=== PATIENT | female | born 1960 | race Caucasian/White ===

== ENCOUNTER 2016-12-19 00:07 | Emergency (ER) | payer OTHER ==
[2016-12-19] VITALS (7 sets, daily range): BP systolic 103–125; BP diastolic 54–83; PULSE 97–114; RESP 18–20; TEMP 99; O2SAT 97–100
[~2016-12-19] VITALS: Ht 162.6 cm; Wt 80.0 kg
[~2016-12-19 00:07] MED LIST: ADDE30XR PO; ARMO90TA PO; CHOL1TAB16 PO; EXEN1INJ SQ; IBUP800 PO; LEVA750T PO; OMEP20TA PO; THYR15 PO; TRAM50 PO
[2016-12-19] MEDS ORDERED: OMEP20TA PO (01:14)
[2016-12-19] MEDS ORDERED: ADDE30TA PO (01:14)
[2016-12-19] MEDS ORDERED: IBUP800T23 PO (01:14)
[2016-12-19] MEDS ORDERED: CHOL1TAB16 PO (01:14)
[2016-12-19] MEDS ORDERED: ARMO90TA PO (01:14)
[2016-12-19] MEDS ORDERED: SODIUM CHLOR 0.9% 1000 ML INJ 1,000 ML IV ONE ×3 (01:24→04:30)
[2016-12-19] MEDS ORDERED: SODIUM CHLORIDE 0.9% FLUSH 10 ML FLUSH IVF PRN (01:30)
[2016-12-19] MEDS ORDERED: ONDANSETRON HCL 4 MG/2 ML VIAL IVP ONE (01:30)
--- NOTE | 2016-12-19 01:31 | PD ---
HPI Chief Complaint: GI Complaint Time Seen by Provider: 01:24 Travel History International Travel<30 days: No Contact w/Intl Traveler<30days: No Traveled to known affect area: No History of Present Illness HPI 56-year-old female presents to the emergency department by private transportation for complaint of nausea vomiting and diarrhea. Patient states noted fatigue around 4:30 this afternoon and then beginning around 6:30 PM having diarrhea and subsequently developing nausea and vomiting. Patient states she has vomited at least 8 times and had an equal amount of more episodes of diarrhea. Patient has noted streaks of blood in her emesis. Patient denies any blood or melanotic diarrhea. Patient denies any abdominal pain. Patient has had only intermittent cramping just before vomiting or having diarrheal stool. Patient has had no fever but has felt chilled. Patient states that she ate salad for lunch that seemed to be normal to her otherwise no report of dietary indiscretion, well water ingestion, or foreign travel. No other family members are similar symptoms. Patient is unable to identify exacerbating or alleviating factors. Patient reports was on antibiotic and October for bronchitis but has not been on antibiotic for over a month. Diarrhea not bloody or with mucous reports watery and goes straight through. PFSH Past Medical History Narrative Medical Lupus, arthritis, diabetes, asthma, anxiety, depression, CAD, myocardial infarction, cardiac catheterization, hypothyroidism, pneumonia, hysterectomy, appendectomy, cholecystectomy, breast surgery w/cellulitis; occasional alcohol use; nursing notes reviewed Hx Anticoagulant Therapy: Yes (ASA 81 MG DAILY) Arthritis: Yes Asthma: Yes Autoimmune Disease: Yes (LUPUS) Blood Disorders: No Depression: Yes Cancer: No Cardiac Catheterization: Yes (2006,2008) Cardiovascular Problems: Yes ([place]) High Cholesterol: No Chest Pain: Yes Diabetes: Yes (TYPE 2) Diminished Hearing: No GERD: Yes Glaucoma: No Genitourinary: No Headaches: Yes Hepatitis: No Hiatal Hernia: Yes Hypertension: No Musculoskeletal: No Neurologic: Yes Psychiatric: Yes Reproductive: No Respiratory: Yes (HX OF PNEUMONIA 2002) Immunizations Current: Yes Migraines: Yes Myocardial Infarction: Yes (JUL 2006, SEP 2006) Thyroid Disease: Yes Tetanus Vaccination: < 5 Years Influenza Vaccination: Yes PNEUMOCCOCAL Vaccine (Year): 2007 ?: Not Ovarian Cysts: Yes Tubal Ligation: Yes (2001) Past Surgical History Abdominal Surgery: Yes Appendectomy: Yes (2003) Cardiac Surgery: Yes Section: Yes (2001) Cholecystectomy: Yes Ear Surgery: No Endocrine Surgery: No Eye Surgery: No Genitourinary Surgery: No Gynecologic Surgery: Yes Hysterectomy: Yes (2006) Oral Surgery: No Pacemaker: No Thoracic Surgery: No Other Surgery: Yes Social History Alcohol Use: Yes (OCCASIONAL) Tobacco Use: No Substance Use: No Allergies-Medications (Allergen,Severity, Reaction): Coded Allergies: [employer] (Verified Allergy, Severe, hives, 12/19/16) Morphine (Verified Allergy, Severe, hives, 12/19/16) Penicillin (Verified Allergy, Severe, RASH, 12/19/16) Sulfa (Verified Allergy, Severe, RASH, 12/19/16) Uncoded Allergies: [facility] (Adverse Reaction, Severe, Not Dr Hill's patient. , 05/07/11) Reported Meds & Prescriptions Reported Meds & Active Scripts Active Reported [place] Thyroid (Thyroid) 90 Mg Tab 90 Mg PO DAILY Omeprazole 20 Mg Tab 20 Mg PO DAILY Ibuprofen 800 Mg Tab 800 Mg PO Q8H PRN Vitamin D3 (Cholecalciferol) 50,000 Unit Tab 50,000 Units PO Q7D Adderall (Amphetamine-Dextroamphetamine) 30 Mg Tab 30 Mg PO BID Avoid late evening doses. Space doses at least 4 to 6 hours if more than once/day dosing. Review of Systems Except as stated in HPI: all other systems reviewed are Neg General / Constitutional: Positive: Chills, No: Fever HENT: Positive: Headaches, No: Congestion Cardiovascular: No: Chest Pain or Discomfort, Palpitations, Syncope Respiratory: No: Shortness of Breath Gastrointestinal: Positive: Nausea, Vomiting, Diarrhea, No: Abdominal Pain ( cramping) Genitourinary: Positive: Decreased Urinary Output, No: Dysuria Musculoskeletal: No: Myalgias, Arthralgias Skin: No Rash Neurologic: Positive: Weakness Psychiatric: No: Anxiety, Depression Hematologic/Lymphatic: No: Easy Bruising Physical Exam Narrative GENERAL: Well-developed well-nourished female in no acute distress no respiratory distress SKIN: Warm and dry. HEAD: Normocephalic. EYES: No scleral icterus. No injection or drainage. NECK: Supple, trachea midline. No JVD or lymphadenopathy. CARDIOVASCULAR: Increased Regular rate and rhythm without murmurs, gallops, or rubs. RESPIRATORY: Breath sounds equal bilaterally. No accessory muscle use. GASTROINTESTINAL: Abdomen soft, non-tender, nondistended. No guarding or rebound. MUSCULOSKELETAL: No cyanosis, or edema. BACK: Nontender without obvious deformity. No CVA tenderness. Data Data Last Documented VS Vital Signs Date Time Temp Pulse Resp B/P Pulse Ox O2 Delivery O2 Flow Rate FiO2 12/19/16 03:58 114 18 120/82 98 Room Air 12/19/16 00:46 99.0 Orders Complete Blood Count With Diff (12/19/16 01:24) Comprehensive Metabolic Panel (12/19/16 01:24) Urinalysis - C+S If Indicated (12/19/16 01:24) Lipase (12/19/16 01:24) Iv Access Insert/Monitor (12/19/16 01:24) Ecg Monitoring (12/19/16 01:24) Oximetry (12/19/16 01:24) Ondansetron Inj (Zofran Inj) (12/19/16 01:30) Sodium Chlor 0.9% 1000 Ml Inj (Ns 1000 M (12/19/16 01:24) Sodium Chloride 0.9% Flush (Ns Flush) (12/19/16 01:30) Enteric Path (Stool) (12/19/16 01:24) Ondansetron Odt (Zofran Odt) (12/19/16 02:30) Sucralfate Liq (Carafate Liq) (12/19/16 03:30) Ketorolac Inj (Toradol Inj) (12/19/16 03:30) Electrocardiogram (12/19/16 ) Chest, Single Ap (12/19/16 ) Sodium Chlor 0.9% 1000 Ml Inj (Ns 1000 M (12/19/16 03:45) Troponin I (12/19/16 01:50) Sodium Chlor 0.9% 1000 Ml Inj (Ns 1000 M (12/19/16 04:30) Labs Laboratory Tests Test 12/19/16 12/19/16 01:35 01:50 Urine Color YELLOW Urine Turbidity MOD Urine pH 8.5 Urine Specific [place] 1.022 Urine Protein 30 mg/dL Urine Glucose (UA) NEG mg/dL Urine Ketones NEG mg/dL Urine Occult Blood NEG Urine Nitrite NEG Urine Bilirubin NEG Urine Leukocyte Esterase NEG Urine RBC 0-3 /hpf Urine WBC 0-2 /hpf Urine Squamous Epithelial 0-5 /hpf Cells Urine Amorphous Sediment LARGE Urine Mucus FEW /lpf Microscopic Urinalysis Comment CULT NOT INDICATED White Blood Count 4.9 TH/MM3 Red Blood Count 5.09 MIL/MM3 Hemoglobin 14.1 GM/DL Hematocrit 42.5 % Mean Corpuscular Volume 83.5 FL Mean Corpuscular Hemoglobin 27.7 PG Mean Corpuscular Hemoglobin 33.2 % Concent Red Cell Distribution Width 13.9 % Platelet Count 240 TH/MM3 Mean Platelet Volume 8.4 FL Neutrophils (%) (Auto) 86.8 % Lymphocytes (%) (Auto) 8.1 % Monocytes (%) (Auto) 4.0 % Eosinophils (%) (Auto) 0.3 % Basophils (%) (Auto) 0.8 % Neutrophils # (Auto) 4.3 TH/MM3 Lymphocytes # (Auto) 0.4 TH/MM3 Monocytes # (Auto) 0.2 TH/MM3 Eosinophils # (Auto) 0.0 TH/MM3 Basophils # (Auto) 0.0 TH/MM3 CBC Comment DIFF FINAL Differential Comment Sodium Level 139 MEQ/L Potassium Level 3.7 MEQ/L Chloride Level 104 MEQ/L Carbon Dioxide Level 24.9 MEQ/L Anion Gap 10 MEQ/L Blood Urea Nitrogen 11 MG/DL Creatinine 0.87 MG/DL Estimat Glomerular Filtration 68 ML/MIN Rate Random Glucose 120 MG/DL Calcium Level 8.8 MG/DL Total Bilirubin 0.6 MG/DL Aspartate Amino Transf 25 U/L (AST/SGOT) Alanine Aminotransferase 28 U/L (ALT/SGPT) Alkaline Phosphatase 104 U/L Troponin I LESS THAN 0.02 NG/ML Total Protein 8.5 GM/DL Albumin 3.9 GM/DL Lipase 209 U/L MDM Medical Decision Making Medical Screen Exam Complete: Yes Emergency Medical Condition: Yes Medical Record Reviewed: Yes Interpretation(s) CBC & BMP Diagram 12/19/16 01:50 Vital Signs Date Time Temp Pulse Resp B/P Pulse Ox O2 Delivery O2 Flow Rate FiO2 12/19/16 03:02 18 12/19/16 03:02 110 18 103/62 97 Room Air 12/19/16 02:07 18 98 Room Air 12/19/16 01:30 97 18 125/79 100 Room Air 12/19/16 00:49 18 12/19/16 00:46 99.0 105 18 110/83 97 12/19/16 00:25 99.0 105 20 110/83 97 ua: SG 1.022 EKG: Sinus tachycardia rate [address] elevation or injury pattern change noted CXR: NAD trop: less than 0.02, not elevated Differential Diagnosis Gastroenteritis, foodborne illness, dehydration, gastritis, peptic ulcer disease , electrolyte disturbance, acs, pud, pancreatitis Narrative Course IV access obtained; specimens collected and sent for resulting; 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 Patient reassessed at 3:35 AM remains tachycardic and complaining of nausea requesting medication for reflux. Patient agreeable to repeat IV access and IV site obtained patient given liter of normal saline; also complains of headache Toradol 30 mg IV administered. No chest pain no shortness of breath. However in view of history of lupus with ongoing nausea vomiting and now complaining of reflux will obtain EKG as well as at troponin I to lab work. 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 Patient will be given prescription for Zofran and a work excuse and school excuse times one day. Patient is encouraged to follow clear liquid diet for 12-24 hours advance as tolerated. Patient is encouraged to return to the emergency for free concerns or change in condition. Patient is encouraged to increase fluid hydration. Patient is stable for outpatient management and follow-up with primary care provider. Patient's questions have been answered to her satisfaction. Diagnosis Primary Impression: Gastroenteritis Referrals: Primary Care Physician call for appointment Patient Instructions: General Instructions Departure Forms: School Release, Please excuse from school until (free text option): no school x 1 day Tests/Procedures, Work Release Special Instructions: no work x 1 day Additional Instructions: Increase fluid hydration Follow clear liquid diet for next 12-24 hours; advance diet as tolerated to bland/Dug[place] diet; advance to regular diet avoiding fried and fatty foods Take Zofran as prescribed as needed for nausea and/or vomiting Take acetaminophen/Tylenol as needed for fever 100.4F or greater Follow-up with primary care provider call office in a.m. to schedule follow-up appointment Return to the emergency department for any concerns or change in condition Med/Other Pt SpecificInfo: Prescription(s) given Scripts Ondansetron (Zofran)4 Mg Tab4 Mg PO Q6HR PRN (NAUSEA OR VOMITING) #10 TAB Ref 0 Prov:Patricia Medrano MD 12/19/16 Disposition: 01 DISCHARGE HOME Condition: Stable Patricia Medrano MD Dec 19, 2016 01:31
[2016-12-19 02:19] LABS: BLOOD, URINE NEG (NEG); GLUCOSE,URINE NEG (NEG); KETONE, URINE NEG (NEG); NITRITE,URINE NEG (NEG); PH, URINE 8.5 (5.0-8.5)
[2016-12-19 02:25] LABS: MUCUS URINE FEW /lpf (OCC); URINE COLOR YELLOW (YELLW/STRAW)
[2016-12-19 02:26] LABS: RBC, URINE 0-3 /hpf (0-3); SQUAMOUS EPITHELIAL CELL URINE 0-5 /hpf (0-5); WBC, URINE 0-2 /hpf (0-5)
[2016-12-19 02:26] LABS: AUTOMATED NEUTROPHIL # 4.3 TH/MM3 (1.8-7.7); BASOPHIL % 0.8 % (0.0-2.0); EOSINOPHIL % 0.3 % (0.0-4.0); HEMATOCRIT 42.5 % (35.0-46.0); LYMPH % 8.1 % (9.0-44.0); LYMPHOCYTE # 0.4 TH/MM3 (1.0-4.8); MEAN CELL VOLUME 83.5 FL (80.0-100.0); MEAN CORPUSCULAR HEMOGLOBIN 27.7 PG (27.0-34.0); MEAN CORPUSCULAR HGB CONC 33.2 % (32.0-36.0); NEUT % 86.8 % (16.0-70.0); PLATELET COUNT 240 TH/MM3 (150-450); RED BLOOD COUNT 5.09 MIL/MM3 (4.00-5.30); RED CELL DISTRIBUTION WIDTH 13.9 % (11.6-17.2); WHITE BLOOD COUNT 4.9 TH/MM3 (4.0-11.0)
[2016-12-19 02:27] LABS: CHLORIDE 104 MEQ/L (98-107); POTASSIUM 3.7 MEQ/L (3.5-5.1); SODIUM (NA) 139 MEQ/L (136-145)
[2016-12-19 02:27] LABS: COMMENT (UR) CULT NOT INDICATED; CULTURE IF INDICATED CULT NOT INDICATED
[2016-12-19 02:28] LABS: HEMO FLAGS DIFF FINAL
[2016-12-19 02:30] LABS: ANION GAP 10 MEQ/L (5-15); BICARBONATE 24.9 MEQ/L (21.0-32.0)
[2016-12-19] MEDS ORDERED: ONDANSETRON ODT 4 MG TAB PO ONE (02:30)
[2016-12-19 02:31] LABS: BLOOD UREA NITROGEN 11 MG/DL (7-18)
[2016-12-19 02:33] LABS: ALT (GPT) 28 U/L (10-53); AST (GOT) 25 U/L (15-37)
[2016-12-19 02:34] LABS: GLOMERULAR FILTRATION RATE 68 ML/MIN (>89)
[2016-12-19 02:35] LABS: TOTAL BILIRUBIN ADULT 0.6 MG/DL (0.2-1.0)
[2016-12-19 02:36] LABS: ALKALINE PHOSPHATASE 104 U/L (45-117)
[2016-12-19] MEDS ORDERED: SUCRALFATE 1 GM/10 ML CUP PO ONE (03:30)
[2016-12-19] MEDS ORDERED: KETOROLAC TROMETHAMINE 30 MG/ML (IVP) VIAL IV PUSH ONE (03:30)
--- NOTE | 2016-12-19 04:06 | RADHPO ---
EXAM DATE/TIME: 12/19/2016 03:49 [facility] COMPARISON: CHEST SINGLE AP, May 25, 2016, 19:39. INDICATIONS : Fever. MEDICAL HISTORY : Myocardial infarction. Gastroesophageal reflux disease. Hiatal hernia. Thyroid disease, Pneumonia, As thma, Arthritis, Diabetes. SURGICAL HISTORY : Cholecystectomy. Appendectomy. Coronary artery stent. Hysterectomy. ENCOUNTER: Initial ACUITY: 1 day PAIN SCORE: 4/10 LOCATION: Bilateral chest FINDINGS: A single view of the chest demonstrates the lungs to be symmetrically aerated without evidence of mas s, infiltrate or effusion. The cardiomediastinal contours are unremarkable. Osseous structures are intact. CONCLUSION: No acute disease. No significant change has occurred. Trev Weiss MD on December 19, 2016 at 4:04 Board Certified Radiologist. This report was verified electronically.
[2016-12-19] MEDS ORDERED: ZOFR4TAB3 SL (04:22)
[2016-12-19] MEDS ORDERED: ZOFR4TAB PO (04:26)
--- NOTE | 2016-12-20 17:50 | EKG ---
Date Performed: 12/19/2016 Time Performed: 04:04:22 PTAGE: 56 years EKG: Sinus tachycardia. Anterolateral ST-T changes are nonspecific Borderline ECG Compared to pr ior study of 12/28/2013, nonspecific ST segment changes are now present. PREVIOUS TRACING : 12/28/2013 20.16 DOCTOR: Harman Godoy Interpretating Date/Time 12/20/2016 17:49:28
== END 2016-12-19 05:22 | disposition home or self-care (01) ==
LOC: PHED 00:07
DX: K52.9 Noninfective gastroenteritis and colitis, unspecified (principal); R53.83 Other fatigue; R00.0 Tachycardia, unspecified; R94.31 Abnormal electrocardiogram [ECG] [EKG]; E11.9 Type 2 diabetes mellitus without complications; E03.9 Hypothyroidism, unspecified; Z79.82 Long term (current) use of aspirin; Z86.2 Personal history of diseases of the blood and blood-forming organs and certain disorders involving the immune mechanism; Z87.39 Personal history of other diseases of the musculoskeletal system and connective tissue; Z87.09 Personal history of other diseases of the respiratory system; Z86.59 Personal history of other mental and behavioral disorders; Z86.79 Personal history of other diseases of the circulatory system; Z87.19 Personal history of other diseases of the digestive system; Z86.69 Personal history of other diseases of the nervous system and sense organs
CPT/HCPCS: 71010; 80053; 81001; 83690; 84484; 85025; 93005; 96361; 96374; 99284; J1885; J2405; J7030

== ENCOUNTER 2017-07-21 20:33 | Emergency (ER) | payer OTHER ==
[~2017-07-21] VITALS: Ht 162.6 cm; Wt 84.0 kg
[~2017-07-21 20:33] MED LIST changes: +ADDE30TA PO; -ADDE30XR PO; -EXEN1INJ SQ; +IBUP1TAB7 PO; -IBUP800 PO; -LEVA750T PO; -OMEP20TA PO; +OMEP20TA93 PO; -THYR15 PO; -TRAM50 PO; +ZOFR4TAB PO
[2017-07-21 20:41] VITALS: BP 115/71; PULSE 88; RESP 16; TEMP 98; O2SAT 97
[2017-07-21] MEDS ORDERED: CHOL1CAP34 PO (20:54)
[2017-07-21] MEDS ORDERED: PANT40TA3 PO (20:54)
--- NOTE | 2017-07-21 21:15 | PD ---
HPI Chief Complaint: Injury Time Seen by Provider: 21:02 Travel History International Travel<30 days: No Contact w/Intl Traveler<30days: No Traveled to known affect area: No History of Present Illness HPI ABOUT 1 HR PRIOR TO ARRIVAL FELL ON OUTSTRETCHED RIGHT HAND, NOTED BRUISING TO FLEXOR ASPECT OF WRIST, ALSO FEELS SOME TINGLING TO HER THUMB/INDEX AND MIDDLE FINGER. NO ALLEVIATING FACTORS.....AGGRAVATED BY FLEXING OR EXTENDING WRIST..... PFSH Past Medical History Hx Anticoagulant Therapy: Yes (ASA 81 MG DAILY) Arthritis: Yes Asthma: Yes Autoimmune Disease: Yes (LUPUS) Blood Disorders: No Depression: Yes Cancer: No Cardiac Catheterization: Yes (2006,2008) Cardiovascular Problems: Yes ([place]) High Cholesterol: No Chest Pain: Yes Diabetes: Yes (TYPE 2) Patient Takes Glucophage: No Diminished Hearing: No GERD: Yes Glaucoma: No Genitourinary: No Headaches: Yes Hepatitis: No Hiatal Hernia: Yes Hypertension: No Musculoskeletal: No Neurologic: Yes Psychiatric: Yes Reproductive: No Respiratory: Yes (HX OF PNEUMONIA 2002) Immunizations Current: Yes Migraines: Yes Myocardial Infarction: Yes (JUL 2006, SEP 2006) Thyroid Disease: Yes PNEUMOCCOCAL Vaccine (Year): 2007 Ovarian Cysts: Yes Tubal Ligation: Yes (2001) Past Surgical History Abdominal Surgery: Yes Appendectomy: Yes (2003) Cardiac Surgery: Yes Section: Yes (2001) Cholecystectomy: Yes Ear Surgery: No Endocrine Surgery: No Eye Surgery: No Genitourinary Surgery: No Gynecologic Surgery: Yes Hysterectomy: Yes Oral Surgery: No Pacemaker: No Thoracic Surgery: No Other Surgery: Yes Social History Alcohol Use: Yes (OCCASIONAL) Tobacco Use: No Substance Use: No Allergies-Medications (Allergen,Severity, Reaction): Coded Allergies: Sulfa (Sulfonamide Antibiotics) (Unverified Allergy, Severe, RASH, ) diatrizoate meglumine (Unverified Allergy, Severe, hives, 07/21/17) gadodiamide (Unverified Allergy, Severe, hives, 07/21/17) gadoteridol (Unverified Allergy, Severe, hives, 07/21/17) iodixanol (Unverified Allergy, Severe, hives, 07/21/17) iohexol (Unverified Allergy, Severe, hives, 07/21/17) morphine (Unverified Allergy, Severe, hives, 07/21/17) penicillin G (Unverified Allergy, Severe, RASH, 07/21/17) Uncoded Allergies: [facility] (Adverse Reaction, Severe, Not Dr Hill's patient. , 05/07/11) Reported Meds & Prescriptions Reported Meds & Active Scripts Active Zofran (Ondansetron HCl) 4 Mg Tab 4 Mg PO Q6HR PRN Reported Pantoprazole (Pantoprazole Sodium) 40 Mg Tab 40 Mg PO DAILY Vitamin D3 (Cholecalciferol) 50,000 Unit Cap 50,000 Units PO Q7D [place] Thyroid (Thyroid) 90 Mg Tab 90 Mg PO DAILY Ibuprofen 800 Mg Tab 800 Mg PO Q8H PRN Vitamin D3 (Cholecalciferol) 50,000 Unit Tab 50,000 Units PO Q7D Adderall (Amphetamine-Dextroamphetamine) 30 Mg Tab 30 Mg PO BID Avoid late evening doses. Space doses at least 4 to 6 hours if more than once/day dosing. Review of Systems Except as stated in HPI: all other systems reviewed are Neg Musculoskeletal: Positive: Pain (RT WRIST) Physical Exam Narrative GENERAL: SKIN: Warm and dry. HEAD: Atraumatic. Normocephalic. EYES: Pupils equal and round. No scleral icterus. No injection or drainage. ENT: No nasal bleeding or discharge. Mucous membranes pink and moist. NECK: Trachea midline. No JVD. CARDIOVASCULAR: Regular rate and rhythm. RESPIRATORY: No accessory muscle use. Clear to auscultation. Breath sounds equal bilaterally. GASTROINTESTINAL: Abdomen soft, non-tender, nondistended. MUSCULOSKELETAL: Extremities without clubbing, cyanosis, or edema. No obvious deformities. FLEXOR ASPECT OVER CARPAL TUNNEL REGION HAS ECHYMOSIS C/W CONTUSION NEUROLOGICAL: Awake and alert. No obvious cranial nerve deficits. Motor grossly within normal limits. Five out of 5 muscle strength in the arms and legs. Normal speech. PSYCHIATRIC: Appropriate mood and affect; insight and judgment normal. Data Data Last Documented VS Vital Signs Date Time Temp Pulse Resp B/P (MAP) Pulse Ox O2 Delivery O2 Flow Rate FiO2 07/21/17 20:41 98.0 88 16 115/71 (86) 97 Orders Orders Wrist, Complete ([id number]) (07/21/17 ) Splint Or Brace Apply/Monitor (07/21/17 21:16) MDM Medical Decision Making Medical Screen Exam Complete: Yes Emergency Medical Condition: Yes Medical Record Reviewed: Yes Differential Diagnosis FX V DISLOCATION V SUBLUXATION V CONTUSION Diagnosis Primary Impression: Contusion of wrist, right Qualified Codes: S60.211A - Contusion of right wrist, initial encounter Patient Instructions: Contusion in Adults (ED), General Instructions Scripts Tramadol (Ultram) 50 Mg Tab 50 MG PO Q6H Y for PAIN, #10 TAB 0 Refills Prov: Matti Yadav MD 07/21/17 Disposition: 01 DISCHARGE HOME Condition: Stable Matti Yadav MD Jul 21, 2017 21:15
[2017-07-21] MEDS ORDERED: TRAM50 PO (21:19)
--- NOTE | 2017-07-21 21:41 | RADRPT ---
EXAM DATE/TIME: 07/21/2017 20:58 [facility] COMPARISON: No previous studies available for comparison. INDICATIONS : Right wrist pain. MEDICAL HISTORY : None. SURGICAL HISTORY : None. ENCOUNTER: Initial ACUITY: 1 day PAIN SCORE: 8/10 LOCATION: Right wrist. FINDINGS: Three view examination of the right wrist demonstrates no soft tissue swelling, dislocation, or fract ure. The carpal bones are in normal alignment. The joint spaces are maintained. Bony mineralizatio n is normal. CONCLUSION: Unremarkable examination of the right wrist. Adam Hummel MD on July 21, 2017 at 21:37 Board Certified Radiologist. This report was verified electronically.
== END 2017-07-21 21:20 | disposition home or self-care (01) ==
LOC: PHEFT 20:33
DX: S60.211A Contusion of right wrist, initial encounter (principal); W19.XXXA Unspecified fall, initial encounter
CPT/HCPCS: 73110; 99283; L3908

== ENCOUNTER 2017-09-15 18:17 | Emergency (ER) | payer OTHER ==
[~2017-09-15] VITALS: Ht 162.6 cm; Wt 84.8 kg
[~2017-09-15 18:17] MED LIST changes: +CHOL1CAP34 PO; -OMEP20TA93 PO; +PANT40TA3 PO; +TRAM50 PO
[2017-09-15 18:25] VITALS: BP 137/82; PULSE 89; RESP 16; TEMP 99.5; O2SAT 97
[2017-09-15] MEDS ORDERED: AZIT250T3 PO (18:53)
[2017-09-15] MEDS ORDERED: BENZ100 PO (18:53)
--- NOTE | 2017-09-15 18:54 | PD ---
HPI Chief Complaint: Cold / Flu Symptoms Time Seen by Provider: 18:42 Travel History International Travel<30 days: No Contact w/Intl Traveler<30days: No Traveled to known affect area: No History of Present Illness HPI 57-year-old female with cough 3 weeks. She reports the last several days the cough has become productive with colored sputum. She reports the symptoms originally improved but then returned. Subjective fevers. No chest pain or shortness of breath. Symptom severity is moderate. No aggravating or alleviating factors. PFSH Past Medical History Hx Anticoagulant Therapy: Yes (ASA 81 MG DAILY) Arthritis: Yes Asthma: Yes Autoimmune Disease: Yes (LUPUS) Blood Disorders: No Depression: Yes Cancer: No Cardiac Catheterization: Yes (2006,2008) Cardiovascular Problems: Yes ([place]) High Cholesterol: No Chest Pain: Yes Diabetes: Yes (TYPE 2) Patient Takes Glucophage: No Diminished Hearing: No GERD: Yes Glaucoma: No Genitourinary: No Headaches: Yes Hepatitis: No Hiatal Hernia: Yes Hypertension: No Medical other: No Musculoskeletal: No Neurologic: Yes Psychiatric: Yes Reproductive: No Respiratory: Yes (HX OF PNEUMONIA 2002) Immunizations Current: Yes Migraines: Yes Myocardial Infarction: Yes (JUL 2006, SEP 2006) Thyroid Disease: Yes PNEUMOCCOCAL Vaccine (Year): 2007 ?: Not Ovarian Cysts: Yes Tubal Ligation: Yes (2001) Past Surgical History Abdominal Surgery: Yes Appendectomy: Yes (2003) Cardiac Surgery: Yes Section: Yes (2001) Cholecystectomy: Yes Ear Surgery: No Endocrine Surgery: No Eye Surgery: No Genitourinary Surgery: No Gynecologic Surgery: Yes Hysterectomy: Yes Oral Surgery: No Pacemaker: No Thoracic Surgery: No Other Surgery: Yes Social History Alcohol Use: Yes (OCCASIONAL) Tobacco Use: No Substance Use: No Allergies-Medications (Allergen,Severity, Reaction): Coded Allergies: Sulfa (Sulfonamide Antibiotics) (Unverified Allergy, Severe, RASH, 09/15/17 ) diatrizoate meglumine (Unverified Allergy, Severe, hives, 09/15/17) gadodiamide (Unverified Allergy, Severe, hives, 09/15/17) gadoteridol (Unverified Allergy, Severe, hives, 09/15/17) iodixanol (Unverified Allergy, Severe, hives, 09/15/17) iohexol (Unverified Allergy, Severe, hives, 09/15/17) morphine (Unverified Allergy, Severe, hives, 09/15/17) penicillin G (Unverified Allergy, Severe, RASH, 09/15/17) Reported Meds & Prescriptions Reported Meds & Active Scripts Active Ultram (Tramadol HCl) 50 Mg Tab 50 Mg PO Q6H PRN Zofran (Ondansetron HCl) 4 Mg Tab 4 Mg PO Q6HR PRN Reported Pantoprazole (Pantoprazole Sodium) 40 Mg Tab 40 Mg PO DAILY Vitamin D3 (Cholecalciferol) 50,000 Unit Cap 50,000 Units PO Q7D [place] Thyroid (Thyroid) 90 Mg Tab 90 Mg PO DAILY Ibuprofen 800 Mg Tab 800 Mg PO Q8H PRN Adderall (Amphetamine-Dextroamphetamine) 30 Mg Tab 30 Mg PO BID Avoid late evening doses. Space doses at least 4 to 6 hours if more than once/day dosing. Review of Systems Except as stated in HPI: all other systems reviewed are Neg General / Constitutional: Positive: Fever Eyes: No: Visual changes HENT: No: Headaches Cardiovascular: No: Chest Pain or Discomfort Respiratory: Positive: Cough Gastrointestinal: No: Abdominal Pain Genitourinary: No: Dysuria Physical Exam Narrative GENERAL: Well-nourished, well-developed patient. SKIN: Focused skin assessment warm/dry. HEAD: Normocephalic. EYES: No injection or drainage. NECK: Supple, trachea midline. CARDIOVASCULAR: Regular rate and rhythm without murmurs, gallops, or rubs. RESPIRATORY: Breath sounds equal bilaterally. No accessory muscle use. Rhonchorous cough GASTROINTESTINAL: Abdomen soft, non-tender, nondistended. Data Data Last Documented VS Vital Signs Date Time Temp Pulse Resp B/P (MAP) Pulse Ox O2 Delivery O2 Flow Rate FiO2 09/15/17 18:25 99.5 89 16 137/82 (100) 97 MDM Medical Decision Making Medical Screen Exam Complete: Yes Emergency Medical Condition: Yes Differential Diagnosis Bronchitis, pneumonia, influenza Narrative Course 57-year-old female here with cough 3 weeks. On exam she has a rhonchorous cough. Her vital signs are stable. She is nontoxic appearing. She will be treated with azithromycin given the duration of the cough. Diagnosis Primary Impression: Bronchitis Referrals: Primary Care Physician Additional Instructions: Tylenol or ibuprofen as needed for pain or fever. Follow-up the primary doctor. Scripts Benzonatate (Tessalon Perles) 100 Mg Cap 200 MG PO TID Y for COUGH for 4 Days, CAP 0 Refills Prov: Erendira Blair 09/15/17 Azithromycin (Azithromycin) 250 Mg Tab 250 MG PO DIRECTED for Infection, #6 TAB 0 Refills Take 2 tabs (500 mg) on day 1 then 1 tab daily x 4 days. Prov: Erendira Blair 09/15/17 Disposition: 01 DISCHARGE HOME Condition: Stable Erendira Blair Sep 15, 2017 18:54
== END 2017-09-15 19:05 | disposition home or self-care (01) ==
LOC: PHEFT 18:17
DX: J40 Bronchitis, not specified as acute or chronic (principal); J45.909 Unspecified asthma, uncomplicated; M32.9 Systemic lupus erythematosus, unspecified; E11.9 Type 2 diabetes mellitus without complications; K21.9 Gastro-esophageal reflux disease without esophagitis; I25.2 Old myocardial infarction; Z79.82 Long term (current) use of aspirin; Z88.5 Allergy status to narcotic agent; Z88.2 Allergy status to sulfonamides; Z88.0 Allergy status to penicillin
CPT/HCPCS: 99284

== ENCOUNTER 2017-12-02 00:25 | Emergency (ER) | payer OTHER ==
[~2017-12-02] VITALS: Ht 162.6 cm; Wt 84.5 kg
[~2017-12-02 00:25] MED LIST changes: +AZIT250T3 PO; +BENZ100 PO; -CHOL1TAB16 PO; -TRAM50 PO; -ZOFR4TAB PO
[2017-12-02 00:30] VITALS: BP 131/66; PULSE 81; RESP 18; TEMP 98.8; O2SAT 96
[2017-12-02 02:30] VITALS: BP 123/74; PULSE 68; RESP 16; O2SAT 98
[2017-12-02 02:55] VITALS: TEMP 97.9
[2017-12-02] MEDS ORDERED: IBUPROFEN 800 MG TAB PO ONE (03:00)
--- NOTE | 2017-12-02 03:45 | PD ---
HPI Chief Complaint: ENT Complaint Time Seen by Provider: 02:50 Travel History International Travel<30 days: No Contact w/Intl Traveler<30days: No Traveled to known affect area: No History of Present Illness HPI 57-year-old female with 2 weeks of sore throat presents to the emergency department for persistent sore throat and right throat swelling. Patient has no difficulty managing oral secretions but does not want to eat or drink secondary to pain. Patient denies any vomiting or diarrhea. Patient denies any abdominal pain. Patient does not report fever. Patient denies recent travel protracted bedrest or surgical procedure. PFSH Past Medical History Narrative Medical CAD dyslipidemia pneumonia; nursing notes reviewed Hx Anticoagulant Therapy: Yes (ASA 81 MG DAILY) Arthritis: Yes Asthma: Yes Autoimmune Disease: Yes (LUPUS) Blood Disorders: No Depression: Yes Cancer: No Cardiac Catheterization: Yes (2006,2008) Cardiovascular Problems: Yes ([place]) High Cholesterol: No Chest Pain: Yes Diabetes: No (TYPE 2) Patient Takes Glucophage: No Diminished Hearing: No GERD: Yes Glaucoma: No Genitourinary: No Headaches: Yes Hepatitis: No Hiatal Hernia: Yes Hypertension: No Musculoskeletal: No Neurologic: Yes Psychiatric: Yes Reproductive: No Respiratory: Yes (HX OF PNEUMONIA 2002) Immunizations Current: Yes Migraines: Yes Myocardial Infarction: Yes (JUL 2006, SEP 2006) Thyroid Disease: Yes Tetanus Vaccination: < 5 Years Influenza Vaccination: Yes PNEUMOCCOCAL Vaccine (Year): 2007 ?: Not Ovarian Cysts: Yes Tubal Ligation: Yes (2001) Past Surgical History Abdominal Surgery: Yes Appendectomy: Yes (2003) Cardiac Surgery: Yes Section: Yes (2001) Cholecystectomy: Yes Ear Surgery: No Endocrine Surgery: No Eye Surgery: No Genitourinary Surgery: No Gynecologic Surgery: Yes Hysterectomy: Yes Oral Surgery: No Pacemaker: No Thoracic Surgery: No Other Surgery: Yes (BREAST IMPLANT REMOVAL) Social History Alcohol Use: Yes (OCCASIONAL) Tobacco Use: No Substance Use: No Allergies-Medications (Allergen,Severity, Reaction): Coded Allergies: Sulfa (Sulfonamide Antibiotics) (Verified Allergy, Severe, RASH, 12/02/17) diatrizoate meglumine (Verified Allergy, Severe, hives, 12/02/17) gadodiamide (Verified Allergy, Severe, hives, 12/02/17) gadoteridol (Verified Allergy, Severe, hives, 12/02/17) iodixanol (Verified Allergy, Severe, hives, 12/02/17) iohexol (Verified Allergy, Severe, hives, 12/02/17) morphine (Verified Allergy, Severe, hives, 12/02/17) penicillin G (Verified Allergy, Severe, RASH, 12/02/17) Reported Meds & Prescriptions Reported Meds & Active Scripts Active Zithromax Z-Benigno (Azithromycin) 250 Mg Dspk 250 Mg PO DIRECTED 500 MG (2 tabs) day 1, then 1 tab days 2-5. Reported Vitamin D3 (Cholecalciferol) 50,000 Unit Cap 50,000 Units PO Q7D [place] Thyroid (Thyroid) 90 Mg Tab 90 Mg PO DAILY Ibuprofen 800 Mg Tab 800 Mg PO Q8H PRN Review of Systems Except as stated in HPI: all other systems reviewed are Neg Physical Exam Narrative GENERAL: Well-developed well-nourished female no acute distress no respiratory distress SKIN: Warm and dry. HEAD: Normocephalic. EYES: No scleral icterus. No injection or drainage. ENT: Mucous membranes moist posterior pharynx mild erythema and exudative change otherwise airways patent and appears to be otherwise otherwise normal exam NECK: Supple, trachea midline. No JVD or lymphadenopathy. Mild left anterior cervical chain lymphadenopathy no mass. CARDIOVASCULAR: Regular rate and rhythm without murmurs, gallops, or rubs. RESPIRATORY: Breath sounds equal bilaterally. No accessory muscle use. GASTROINTESTINAL: Abdomen soft, non-tender, nondistended. MUSCULOSKELETAL: No cyanosis, or edema. BACK: Nontender without obvious deformity. No CVA tenderness. Data Data Last Documented VS Vital Signs Date Time Temp Pulse Resp B/P (MAP) Pulse Ox O2 Delivery O2 Flow Rate FiO2 12/02/17 04:51 12/02/17 04:10 83 16 99 Room Air 12/02/17 02:55 97.9 Orders Orders Group A Rapid Strep Screen (12/02/17 02:51) Ibuprofen (Motrin) (12/02/17 03:00) Ct Soft Tiss Neck W/O Iv Cont (12/02/17 ) Strep Culture (Group A) (12/02/17 02:34) Ed Discharge Order (12/02/17 04:36) MDM Medical Decision Making Medical Screen Exam Complete: Yes Emergency Medical Condition: Yes Medical Record Reviewed: Yes Interpretation(s) RSA: negative Last Impressions Neck CT 12/02/17 0000 Signed Impressions: Service Date/Time: Saturday, December 02, 2017 03:09 - CONCLUSION: 1. Multiple small lymph nodes several of which account for palpable lump right neck. Ori Gunn MD Differential Diagnosis Pharyngitis, laryngitis, retropharyngeal abscess, peritonsillar abscess, submandibular abscess, sialoadenitis Narrative Course Patient given weight-based ibuprofen 1 dose and rapid strep antigen specimen collected Patient sent for CT soft tissue of the neck without contrast due to multiple allergies Imaging study reveals no acute process other than lymphadenopathy Patient symptomatically improved after ibuprofen is stable for outpatient management and follow-up with her primary care provider Diagnosis Primary Impression: Pharyngitis Referrals: Primary Care Physician call for appointment Patient Instructions: General Instructions Additional Instructions: Increase fluid hydration Take [id number] or prescription ibuprofen 800 mg every 8 hours for pain associated with inflammation or for fever 100.4F or greater May take acetaminophen/Tylenol as tolerated for fever 100.4F or greater or for minor discomfort Complete course of antibiotic as prescribed Follow-up with your primary care provider Return to the emergency department for any concerns or change in condition Med/Other Pt SpecificInfo: Prescription(s) given Scripts Azithromycin (Zithromax Z-Benigno) 250 Mg Dspk 250 MG PO DIRECTED for Infection, #1 DSPK 0 Refills 500 MG (2 tabs) day 1, then 1 tab days 2-5. Prov: Patricia Medrano MD 12/02/17 Disposition: 01 DISCHARGE HOME Condition: Stable Patricia Medrano MD Dec 02, 2017 03:45
--- NOTE | 2017-12-02 04:09 | RADRPT ---
EXAM DATE/TIME: 12/02/2017 03:09 [facility] COMPARISON: No previous studies available for comparison. INDICATIONS : Right neck pain with palpable lump. RADIATION DOSE: 14.5 CTDIvol (mGy) MEDICAL HISTORY : Gastroesophageal reflux disease. SURGICAL HISTORY : None. ENCOUNTER: Initial ACUITY: 1 day PAIN SCORE: 10/10 LOCATION: Right neck TECHNIQUE: Volumetric scanning of the neck was performed. Using automated exposure control and adjustment of th e mA and/or kV according to patient size, radiation dose was kept as low as reasonably achievable to obtain optimal diagnostic quality images. DICOM format image data is available electronically for re view and comparison. FINDINGS: NASOPHARYNX: The nasopharyngeal airway has a normal configuration. No mucosal thickening or mass is seen. OROPHARYNX: The intrinsic muscles of the tongue are symmetric. The tonsillar pillars are intact. The prevertebr al soft tissues are not thickened. LARYNX: The supraglottic, glottic, and infraglottic structures are intact. PARAPHARYNGEAL: The parapharyngeal space is intact. SALIVARY GLANDS: The parotid and submandibular glands are intact. LYMPH NODES: Multiple small scattered lymph nodes throughout the neck bilaterally. Marker placed on the right neck corresponds with several small lymph nodes in the right submandibular region measuring approximately 1 cm in size.. THYROID: Homogeneous enhancement without evidence of nodule. BONES: Unremarkable. CONCLUSION: 1. Multiple small lymph nodes several of which account for palpable lump right neck. Ori Gunn MD on December 02, 2017 at 4:05 Board Certified Radiologist. This report was verified electronically.
[2017-12-02 04:10] VITALS: BP 119/76; PULSE 83; RESP 16; O2SAT 99
[2017-12-02] MEDS ORDERED: ZITHTAB PO (04:38)
== END 2017-12-02 04:54 | disposition home or self-care (01) ==
LOC: PHED 00:25
DX: J02.9 Acute pharyngitis, unspecified (principal); I25.10 Atherosclerotic heart disease of native coronary artery without angina pectoris; E78.5 Hyperlipidemia, unspecified; F32.9 Major depressive disorder, single episode, unspecified; M32.9 Systemic lupus erythematosus, unspecified; J45.909 Unspecified asthma, uncomplicated; K21.9 Gastro-esophageal reflux disease without esophagitis; I25.2 Old myocardial infarction
CPT/HCPCS: 70490; 87081; 87880; 99283